=== PATIENT | female | born 1960 | race Caucasian/White ===

== ENCOUNTER 2024-12-17 07:07 | Day surgery (SDC) | payer OTHER ==
--- NOTE | 2024-12-14 15:05 | RAD REPORT ---
EXAM: Chest Pa And Lat (2 Views) HISTORY: 64 years Female Pre-op pending heart cath COMPARISON: None. FINDINGS: LUNGS/PLEURA: The lungs are clear. No pleural effusions or pneumothorax. No pulmonary edema. CARDIAC/MEDIASTINUM: Mild cardiomegaly UPPER ABDOMEN: No significant abnormality. BONES: No acute abnormality. LINES/TUBES/OTHER: N/A IMPRESSION: No evidence of acute cardiopulmonary disease.
[2024-12-14 15:52] LABS: Absolute Basophils 0.1 K/uL (0-0.5); Absolute Eosinophils 0.1 K/uL (0-0.5); Absolute Lymphocytes (CBC) 2.7 K/uL (0.7-4.9); Absolute Neutrophil 7.8 K/uL (1.8-8.0); Basophils % 0.9 % (0-1.3); Hematocrit 44.3 % (36.0-45.0); Hemoglobin 15.1 g/dL (12.0-15.0); Lymphocytes % 22.7 % (15.3-44.8); MCH 29.7 pg (27.0-35.0); MCHC 34.1 g/dL (32.0-36.0); MCV 87.1 fL (80-100); MPV 8.8 fL (7.6-11.3); Monocytes % 8.5 % (3.3-12.3); Neutrophils % 66.9 % (41.7-73.7); Platelets 337 thou/uL (152-406); RBC Red Blood Cell Count 5.09 M/uL (3.86-4.86)
[2024-12-14 16:06] LABS: PT Prothrombin Time 10.9 SECONDS (10-13.0); PTT, Activated Partial Thromb 33.8 SECONDS (27.2-37.4); Protime INR 0.95
[2024-12-14 16:07] LABS: Anion Gap 9.8 mEq/L (5.0-15.0); Potassium 3.8 mEq/L (3.5-5.1)
[2024-12-17] MEDS ORDERED: HEPA 1000U/500MLS 2,000 UNIT/1,000 ML BAG IV ONE (07:33)
[2024-12-17] MEDS ORDERED: LIDOCAINE 1% 20 ML MDV ONE (07:33)
[2024-12-17] MEDS ORDERED: NITROGLYCERIN/D5W 50 MG/250 ML BTL IV ONE (07:35)
[2024-12-17] MEDS ORDERED: HEPARIN 10,000 UNIT/10 ML VIAL IV ONE (07:35)
[2024-12-17] MEDS ORDERED: ATROPINE SULF 1 MG/10 ML SYR IV ONE (07:35)
[2024-12-17] MEDS ORDERED: FLUMAZENIL 0.1 MG/ML (5 mL VIAL) IV ONE (07:36)
[2024-12-17] MEDS ORDERED: NALOXONE 0.4 MG/ML VIAL ONE (07:36)
[2024-12-17] MEDS ORDERED: ASPIRIN 325 MG TAB ONE (07:36)
[2024-12-17] MEDS ORDERED: TICAGRELOR 90 MG TABLET PO ONE (07:36)
[2024-12-17] MEDS ORDERED: HEPARIN 5000 UNIT/ML 1 ML VIAL ONE (07:36)
[2024-12-17] MEDS ORDERED: CLOPIDOGREL 75 MG TABLET ONE (07:36)
[2024-12-17] MEDS ORDERED: MIDAZOLAM HCL 2 MG/2 ML INJ ONE (07:37)
[2024-12-17] MEDS ORDERED: FENTANYL CITR 100 MCG/2 ML ONE (07:37)
[2024-12-17 08:51] VITALS: TEMP 97.9
[2024-12-17 10:36] VITALS: BP 135/80; O2SAT 94
--- NOTE | 2024-12-17 21:32 | OP ---
Date of Procedure: 12/17/2024 Surgeon: Marcio Wheat Procedure Performed: Selective coronary angiogram. Indication For Procedure: Chest pain, abnormal stress test with mild reduced ejection fraction. Complications: None. Estimated Blood Loss: Less than 50 cc. Access: Right radial, closed by TR band. Sedation Time: 20 minutes with 1 of Versed and 25 fentanyl. Description Of Procedure: After risks, benefits, and alternatives were explained to the patient, pat ient agreed to proceed with procedure and signed informed consent. The patient was brought back to [facility], prepped and draped in sterile fashion. Time-out was performed. Sedation was administer ed. Next, [place] 4 catheter was advanced over a J-wire to the aortic root. Selective angiogram was d one using the same catheter. At the end of the procedure, catheter was removed over a J-wire. Sheat h was removed. TR band was applied. Hemostasis was achieved and patient was moved back to Recovery in stable condition. Findings: 1. Left main: Normal. 2. LAD: Mild luminal irregularities. 3. Diagonal 1: Small artery with mid 80% disease, not amenable for intervention. 4. Left circ: Mild luminal irregularities. 5. RCA with ostial 30% disease and mild luminal irregularities. Assessment And Plan: 1. 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 2. Mild ostial right coronary artery disease. 3. Plan is to continue medical management. LOVE/BRAXTON Voice ID: [id number] Report ID: [id number]
== END 2024-12-17 10:40 | disposition home or self-care (01) ==
LOC: CCL 07:07
PROVIDERS: ATTEND Internal Medicine Interventional Cardiology
DX: I25.10 Atherosclerotic heart disease of native coronary artery without angina pectoris (principal); I35.0 Nonrheumatic aortic (valve) stenosis; I11.0 Hypertensive heart disease with heart failure; I50.22 Chronic systolic (congestive) heart failure; I49.3 Ventricular premature depolarization; E78.2 Mixed hyperlipidemia; F17.210 Nicotine dependence, cigarettes, uncomplicated; Z79.899 Other long term (current) drug therapy
CPT/HCPCS: 85025; 80048; 36415; 85610; 85730; 71046; 93454; 76937; C1893; Q9966; J1644; J2003; J2250; J3010; 99152; J0461; J2310